=== PATIENT | female | born 1985 | race African-American/Black ===

== ENCOUNTER 2022-07-12 14:53 | Emergency (ER) | payer MEDICAID ==
[~2022-07-12] VITALS: Ht 175.3 cm; Wt 59.0 kg
[2022-07-12 14:56] VITALS: BP 141/95
== END 2022-07-12 16:09 | disposition left against medical advice (07) ==
LOC: ER 15:16
DX: Z53.21 Procedure and treatment not carried out due to patient leaving prior to being seen by health care provider (principal)
CPT/HCPCS: 99281